=== PATIENT | female | born 1960 | race Caucasian/White ===

== ENCOUNTER → 2017-03-03 | Outpatient (CLI) | payer OTHER, MEDICARE ==
--- NOTE | 2017-03-03 10:02 | RAD ---
EXAM: DIGITAL SCREEN BILAT W/CAD. HISTORY: Screening. COMPARISON: 01/24/2016, 12/28/2014, 12/16/2013. FINDINGS: Digital mammography was performed. Computer-aided detection (CAD) was utilized. The breast parenchyma is primarily fatty (tissue density A). No dominant suspicious mass, suspicious microcalcifications, or architectural distortion is identified. IMPRESSION: No mammographic evidence of malignancy. BI-RADS CATEGORY: 1 NEGATIVE RECOMMENDED FOLLOW-UP: 12M 12 MONTH FOLLOW-UP PQRS compliance statement: Patient information was entered into a reminder system with a target due date for the next mammogram. Mammography is a sensitive method for finding small breast cancers, but it does not detect them all and is not a substitute for careful clinical examination. A negative mammogram does not negate a clinically suspicious finding and should not result in delay in biopsying a clinically suspicious abnormality. "Our facility is accredited by the [employer] Mammography Program."
== END | disposition home or self-care (01) ==
LOC: MAMMO 09:23
PROVIDERS: ATTEND Family Medicine
DX: Z12.31 Encounter for screening mammogram for malignant neoplasm of breast (principal)
CPT/HCPCS: G0202; 77067

== ENCOUNTER → 2017-08-22 | Outpatient (CLI) | payer OTHER, MEDICARE ==
--- NOTE | 2017-08-22 11:11 | RAD ---
CT of the head without contrast, 08/22/2017: History: Fall, injury, head and neck pain The ventricles are within normal limits in size. There is no shift of the midline structures. There is no evidence of acute intracranial hemorrhage or mass effect. IMPRESSION: No acute intracranial abnormality is detected. CT of the cervical spine without contrast, 08/22/2017: Noncontrast scans were obtained with multiplanar reconstructions produced. There is fusion of the C3 and C4 vertebrae, presumably on a congenital basis. Moderate posterior marginal spurring and mild disc bulging at C4-5 is causing mild central spinal stenosis at that level. There is also mild posterior disc bulging and spurring at C5-6 and C6-7. There are mild degenerative changes involving scattered facet joints bilaterally. No acute fracture or dislocation is identified. The prevertebral soft tissues are unremarkable. IMPRESSION: 1. Moderate multilevel degenerative change as described above. 2. No acute bony abnormality is detected. PQRS Compliance Statement: One or more of the following individualized dose reduction techniques were utilized for this examination: 1. Automated exposure control 2. Adjustment of the mA and/or kV according to patient size 3. Use of iterative reconstruction technique
== END | disposition home or self-care (01) ==
LOC: CT 09:34
PROVIDERS: ATTEND Nurse Practitioner Family
DX: M48.02 Spinal stenosis, cervical region (principal); M47.892 Other spondylosis, cervical region; R51 Headache; W18.2XXA Fall in (into) shower or empty bathtub, initial encounter; Y93.89 Activity, other specified; Y92.89 Other specified places as the place of occurrence of the external cause; Y99.8 Other external cause status
CPT/HCPCS: 70450; 72125

== ENCOUNTER → 2018-01-13 | Outpatient (CLI) | payer BC ==
--- NOTE | 2018-01-13 11:56 | RAD ---
CT abdomen pelvis without intravenous contrast History: Right flank pain for 3 days. Comparison: None. Technique: CT of the abdomen and pelvis was performed without intravenous or oral contrast. Exposure: One or more of the following individualized dose reduction techniques were utilized for this examination: 1. Automated exposure control 2. Adjustment of the mA and/or kV according to patient size 3. Use of iterative reconstruction technique Findings: Evaluation of solid organs is limited by lack of intravenous contrast. Evaluation of enteric structures may be limited by lack of oral contrast. Motion artifact is seen at several levels, which could obscure subtle abnormalities. Visualized lower chest demonstrate a few small right cardiophrenic lymph nodes with the largest measuring 7 mm, nonspecific. Mild fatty liver disease is seen. Old granulomatous disease of the liver and spleen can be seen. Pancreas, gallbladder, and bilateral adrenal glands are unremarkable. Aortic atherosclerosis is seen. Bilateral kidneys and ureters are free stone or obstruction. Urinary bladder is unremarkable. Uterus and adnexa have unremarkable CT appearance. Scattered colonic diverticulosis is noted, but no diverticulitis appreciated. Appendix is without evidence of inflammation. No free air free fluid is seen in the abdomen or pelvis. Impression: No acute abnormality identified in the abdomen or pelvis. No evidence of urinary stone. Electronically signed by: Mark Cervantes MD (01/13/2018 11:53 AM) [place] [id number]
== END | disposition home or self-care (01) ==
LOC: CT 11:29
PROVIDERS: ATTEND Family Medicine
DX: K57.30 Diverticulosis of large intestine without perforation or abscess without bleeding (principal); K76.0 Fatty (change of) liver, not elsewhere classified; D71 Functional disorders of polymorphonuclear neutrophils; I70.0 Atherosclerosis of aorta
CPT/HCPCS: 74176

== ENCOUNTER 2018-04-13 14:33 | Observation (INO) | payer BC, MEDICARE ==
[~2018-04-13] VITALS: Ht 170.2 cm; Wt 105.4 kg
[2018-04-13 14:58] VITALS: BP 105/66
[2018-04-13] MEDS ORDERED: ONDANSETRON PF 4 MG/2 ML VIAL. IV PRN (15:00)
[2018-04-13] MEDS ORDERED: INSU100V13 SQ (15:16)
[2018-04-13] MEDS ORDERED: ASPI-612 PO (15:16)
[2018-04-13] MEDS ORDERED: ROPI1TAB PO (15:16)
[2018-04-13] MEDS ORDERED: MULT1TAB52 PO (15:16)
[2018-04-13] MEDS ORDERED: CANA300T PO (15:16)
[2018-04-13] MEDS ORDERED: OMEG-33 PO (15:16)
[2018-04-13] MEDS ORDERED: ALBU8.5H8 INH (15:16)
[2018-04-13] MEDS ORDERED: PREG200C PO (15:16)
[2018-04-13] MEDS ORDERED: SIMV10TA3 PO (15:16)
[2018-04-13] MEDS ORDERED: INSU100V9 SQ (15:16)
[2018-04-13] MEDS ORDERED: BACL10TA PO (15:16)
[2018-04-13] MEDS ORDERED: LIRA0.6P2 SQ (15:16)
[2018-04-13] MEDS ORDERED: FLUT9.9S NS (15:16)
[2018-04-13] MEDS ORDERED: METF10003 PO (15:16)
[2018-04-13] MEDS ORDERED: FENO145T30 PO (15:16)
[2018-04-13] MEDS ORDERED: LOSA1TAB19 PO (15:16)
[2018-04-13] MEDS ORDERED: IBUP400T18 PO (15:16)
[2018-04-13] MEDS ORDERED: CALC-157 PO (15:16)
[2018-04-13] MEDS ORDERED: TIOT4MIS3 IH (15:16)
[2018-04-13] MEDS ORDERED: DILT120C80 PO (15:16)
[2018-04-13] MEDS ORDERED: DULO30CA2 PO (15:16)
[2018-04-13 15:24] LABS: BASO # 0.1 x10^3/uL (0.0-0.2); BASO % 1 % (0-3); EOS # 0.2 x10^3/uL (0.0-0.7); EOS % 4 % (0-3); HEMATOCRIT 43.7 % (36.0-47.0); HEMOGLOBIN 15.1 g/dL (12.0-15.5); LYMPH # 3.2 x10^3/uL (1.0-4.8); LYMPH % 48 % (24-48); MEAN CORPUSCULAR HEMOGLOBIN 29 pg (25-35); MEAN CORPUSCULAR HGB CONC 35 g/dL (31-37); MEAN CORPUSCULAR VOLUME 85 fL (79-100); MONO # 0.8 x10^3/uL (0.0-1.1); MONO % 12 % (0-9); NEUT # 2.4 x10^3uL (1.8-7.7); NEUT % 36 % (31-73); PLATELET COUNT 240 x10^3/uL (140-400); RED BLOOD COUNT 5.13 x10^6/uL (3.50-5.40); RED CELL DISTRIBUTION WIDTH 14.2 % (11.5-14.5); WHITE BLOOD COUNT 6.7 x10^3/uL (4.0-11.0)
[2018-04-13 15:45] LABS: ALBUMIN 3.6 g/dL (3.4-5.0); ALBUMIN/GLOBULIN RATIO 0.8 (1.0-1.7); CALCIUM 9.3 mg/dL (8.5-10.1); CREATININE 0.7 mg/dL (0.6-1.0); GFR 85.6; POTASSIUM 4.1 mmol/L (3.5-5.1); TOTAL BILIRUBIN 0.5 mg/dL (0.2-1.0); TOTAL PROTEIN 8.3 g/dL (6.4-8.2)
[2018-04-13] MEDS ORDERED: IBUPROFEN 400 MG TABLET. PO SCH (16:00)
--- NOTE | 2018-04-13 16:25 | RAD ---
CT HEAD WITHOUT CONTRAST 04/13/2018 4:01 PM Indication: DIZZINESS Comparison: CT of the head without contrast August 22, 2017 Procedure: Multidetector CT imaging of the head was performed without the administration of contrast. Findings: There is no evidence of acute intracranial hemorrhage. There is no evidence of acute territorial infarction. Please note that CT is limited for evaluation of acute ischemia. No mass effect or midline shift is identified . The ventricles and basilar cisterns have an appropriate appearance. No abnormal extra-axial fluid collections are seen. No acute osseous changes are identified. Impression: No evidence of acute intracranial abnormality Electronically signed by: Luciano Keller MD (04/13/2018 4:22 PM) [id number]
[2018-04-13] MEDS: INSULIN LISPRO 300 UNITS/3 ML INSULN.PEN. SQ SCH (16:30)
[2018-04-13] MEDS ORDERED: metFORMIN 500 MG TABLET PO SCH (17:00)
[2018-04-13] MEDS ORDERED: ALBUTEROL SULFATE 8GM INHALER. INH PRN (18:30)
[2018-04-13] MEDS ORDERED: ALBUTEROL SULFATE 2.5 MG/3 ML NEBU. NEB PRN (19:00)
[2018-04-13 20:03] VITALS: BP 113/69
[2018-04-13] MEDS: OMEGA-3 FATTY ACIDS/FISH OIL 1,000 MG CAPSULE. PO SCH (20:05)
[2018-04-13] MEDS: rOPINIRole 1 MG TABLET. PO SCH (20:05)
[2018-04-13] MEDS: BACLOFEN 10 MG TABLET PO SCH (20:06)
[2018-04-13] MEDS: PREGABALIN 50 MG CAPSULE PO SCH (20:06)
[2018-04-13] MEDS: INSULIN GLARGINE 300 UNITS/3 ML INSULN.PEN. SQ SCH (20:11)
[2018-04-13] MEDS ORDERED: ONDANSETRON ODT 4 MG TAB.RAPDIS PO PRN (20:30)
[2018-04-13] MEDS ORDERED: DULoxetine HCL 30 MG CAPSULE.DR PO ONE (21:00)
[2018-04-13] MEDS ORDERED: SIMVASTATIN 10 MG TABLET PO SCH (21:00)
[2018-04-13] MEDS ORDERED: DULoxetine HCL 30 MG CAPSULE.DR PO SCH ×2 (21:00)
[2018-04-13] MEDS ORDERED: CALCIUM CARB/VIT D3 500/200 TABLET PO SCH (21:00)
[2018-04-13] MEDS ORDERED: BACLOFEN 10 MG TABLET PO SCH (21:00)
[2018-04-13 22:20] LABS: BILIRUBIN,URINE NEG (NEG); CLARITY,URINE CLEAR; COLOR,URINE YELLOW; GLUCOSE,URINE >=1000 mg/dL (NEG); NITRITE,URINE NEG (NEG); UROBILINOGEN,URINE 1 mg/dL (0.2 mg/dL)
[2018-04-13 22:21] LABS: BACTERIA,URINE FEW /HPF (0-FEW); RBC,URINE 0 /HPF (0-2); SQUAMOUS EPITHELIAL CELL,UR MOD /LPF; WBC,URINE OCC /HPF (0-4); YEAST,URINE PRESENT /HPF
[2018-04-14] VITALS (7 sets, daily range): BP systolic 96–152; BP diastolic 61–105
[2018-04-14 03:43] LABS: BASO # 0.1 x10^3/uL (0.0-0.2); BASO % 1 % (0-3); EOS # 0.3 x10^3/uL (0.0-0.7); EOS % 5 % (0-3); HEMATOCRIT 42.6 % (36.0-47.0); HEMOGLOBIN 14.4 g/dL (12.0-15.5); LYMPH # 3.4 x10^3/uL (1.0-4.8); LYMPH % 53 % (24-48); MEAN CORPUSCULAR HEMOGLOBIN 29 pg (25-35); MEAN CORPUSCULAR HGB CONC 34 g/dL (31-37); MEAN CORPUSCULAR VOLUME 87 fL (79-100); MONO # 0.6 x10^3/uL (0.0-1.1); MONO % 10 % (0-9); NEUT % 31 % (31-73); PLATELET COUNT 233 x10^3/uL (140-400); RED CELL DISTRIBUTION WIDTH 14.5 % (11.5-14.5); WHITE BLOOD COUNT 6.5 x10^3/uL (4.0-11.0)
[2018-04-14 04:08] LABS: CALCIUM 9.4 mg/dL (8.5-10.1); CREATININE 0.8 mg/dL (0.6-1.0); GFR 73.4; POTASSIUM 4.1 mmol/L (3.5-5.1)
--- NOTE | 2018-04-14 05:51 | CONS ---
DATE OF CONSULTATION: 04/13/2018 REFERRING PHYSICIAN: Dr. Aldridge. REASON FOR CONSULTATION: Severe leg cramps and weakness. HISTORY OF PRESENT ILLNESS: This is a 57-year-old right-handed female who is known to me from previous visit to my office complaining of symptoms of peripheral neuropathy, has been in her usual state of health until last night when she had severe cramping of the legs from the knee down. She tried to stand up and walk, she felt dizzy and steady, but she did not fall. Subsequently, she has nausea and she vomited, and she had slight vomitus. She stayed in bed all night when she tried to get up this morning, the patient felt nauseated and have a foggy feeling in the head with moderate global headaches. She denies nausea this morning. On occasions, she complains of exertional dyspnea; however, and currently, she denies chest pain, shortness of breath or palpitations. She stated she felt like she is feverish. When she tried to walk, her legs were very weak. She denies any recent back injuries or fall. PAST MEDICAL HISTORY: Significant for diabetes mellitus, hypertension, hyperlipidemia, restless leg syndrome, peripheral neuropathy, obesity, depression, GERD. PAST SURGICAL HISTORY: Status post left foot surgeries, tubal ligations in 1984 in 1988, left knee surgeries in 2013. FAMILY HISTORY: Noncontributory. CURRENT HOME MEDICATIONS: Aspirin, baclofen, vitamin D, diltiazem, Cymbalta, fenofibrate, fish oil, hydrochlorothiazide, ibuprofen, insulin Lantus, insulin Humalog, losartan, metformin, multivitamins, pregabalin/Lyrica, allopurinol, and simvastatin. ALLERGIES: No known drug allergies. REVIEW OF SYSTEMS: A 10-point review of system was performed as mentioned above history of present illness. PHYSICAL EXAMINATION: GENERAL: Obese white female, in no acute distress. She weighs 234 pounds. VITAL SIGNS: Blood pressure 105/66, respiratory rate 22, pulse is 92, temperature 98.1, oxygen saturation 93% on room air. HEENT: Normocephalic, atraumatic, otherwise unremarkable. NECK: Supple. Negative for carotid bruit, lymphadenopathy or thyromegaly. LUNGS: Clear to A and P. CARDIOVASCULAR: Regular rate and rhythm, normal S1, S2. ABDOMEN: Soft. Bowel sounds positive. EXTREMITIES: Negative for cyanosis, clubbing or pitting edema. NEUROLOGIC: MENTAL STATUS: The patient is alert and oriented x 3. Speech is fluent. There is no language dysfunction. Memory, judgment, and abstract thinking are normal. The patient denies hallucination or delusion. CRANIAL NERVES: Visual jorge are full. The pupils are reactive to light and accommodation. The extraocular movements are intact. There is no nystagmus. There is no facial, motor or sensory deficit. Hearing is intact bilaterally. The palate is elevated symmetrically. Sternocleidomastoid muscles are powerful bilaterally. The patient shrugs her shoulders symmetrically and protrudes her tongue in the midline without fasciculation or atrophy. MOTOR EXAMINATION: No focal muscle bulk was seen. The tone is normal. The strength is 4/5 throughout in the lower extremities. SENSORY EXAMINATION: Revealed diminished pinprick and light touch senses in patchy distributions and in stocking distributions. Deep tendon reflexes were symmetric with absent Achilles responses bilaterally. Gait: The patient limping on her gait secondary to weakness of the distal lower extremities. The coordination is normal. Initial head CT scan is negative for acute intracranial process. LABORATORY DATA: CBC revealed white blood cells of 6700, hemoglobin 15.1, hematocrit 43.7, platelet count 240,000. Chemistry revealed sodium of 140, potassium 4.1, chloride 102, CO2 26, BUN 15, creatinine 0.5, glucose 212, and calcium 9.3. Liver enzymes, elevated AST. Troponin level is normal. Amylase and lipase were normal. D-dimer is normal at 0.47. IMPRESSION: 1. Exacerbation of restless leg syndrome. 2. Peripheral neuropathy of the lower extremities, probably due to diabetes mellitus. 3. Multiple medical problems include chronic obstructive pulmonary disease, asthma, hypertension, hyperlipidemia, diabetes mellitus, and gastroesophageal reflux disease. RECOMMENDATIONS: 1. Continue with the current management for peripheral neuropathy, with Lyrica. 2. Physical therapy evaluation. 3. In case of having nausea, vomiting with abdominal pain, we will order abdominal ultrasound or gallbladder ultrasounds. M Armond ESPINOZA MD DR: BEN/olga lidia JOB#: [id number] / [id number]
[2018-04-14] MEDS: OMEGA-3 FATTY ACIDS/FISH OIL 1,000 MG CAPSULE. PO SCH (09:00)
[2018-04-14] MEDS: NON FORMULARY ITEM (Liraglutide (Victoza 3-Pak) 1.8 MG) SQ SCH (09:00)
[2018-04-14] MEDS ORDERED: hydroCHLOROthiazide 12.5 MG CAPSULE PO SCH (09:00)
[2018-04-14] MEDS ORDERED: FENOFIBRATE NANOCRYSTALLIZED 145 MG TABLET PO SCH (09:00)
[2018-04-14] MEDS ORDERED: LOSARTAN 50 MG TABLET. PO SCH (09:00)
[2018-04-14] MEDS: NON FORMULARY ITEM (Tiotropium Br/Olodaterol HCl (Stiolto Respimat Inhal Spray) 2.5 GM) IH SCH (09:00)
[2018-04-14] MEDS: BACLOFEN 10 MG TABLET PO SCH ×3 (09:05→20:32)
[2018-04-14] MEDS: FLUTICASONE 50MCG/NASAL SPRAY 16GM BOTTLE. NS SCH (09:33)
[2018-04-14] MEDS: ASPIRIN ENTERIC COATED 81 MG TABLET.DR. PO SCH (09:34)
[2018-04-14] MEDS: MULTIVITAMIN with MINERAL TABLET. PO SCH (09:35)
[2018-04-14] MEDS: PREGABALIN 50 MG CAPSULE PO SCH ×3 (09:35→20:32)
[2018-04-14] MEDS: rOPINIRole 1 MG TABLET. PO SCH ×3 (09:37→20:31)
[2018-04-14] MEDS: INSULIN LISPRO 300 UNITS/3 ML INSULN.PEN. SQ SCH ×3 (09:45→17:03)
--- NOTE | 2018-04-14 10:17 | PN ---
DATE: 04/14/2018 SUBJECTIVE: The patient continues to complain of numbness and paresthesia of the feet and weakness of the lower extremities. As the day goes on, the patient feels better. She also complains of dizziness upon arising this morning. She denies chest pain, shortness of breath or palpitation, dysarthria, dysphagia or vertigo. OBJECTIVE: GENERAL: Obese white female, not in acute distress. VITAL SIGNS: Blood pressure 96/66, respiratory rate 20, pulse is 78 and regular, temperature 98.4, oxygen saturation 95% on room air. HEENT: Normocephalic, atraumatic, otherwise unremarkable. NECK: Supple. Negative for carotid bruit, lymphadenopathy or thyromegaly. LUNGS: Clear to A and P. CARDIOVASCULAR: Regular rate and rhythm, normal S1, S2. There is no S3, S4, or murmur. ABDOMEN: Soft. Bowel sounds positive. EXTREMITIES: Negative for cyanosis, clubbing, pitting edema. NEUROLOGIC: Normal mental status and intact cranial nerves. There are no focal motor deficits. Sensory examination revealed diminished pinprick and light touch senses in distal lower extremities and in stocking distributions. Deep tendon reflexes were symmetric with absent Achilles responses bilaterally. The tandem gait is difficult. The coordination is normal. LABORATORY DATA: CBC revealed white blood cells 6.5 thousand, hemoglobin 14.4, hematocrit 42.6, platelet count 233,000. Chemistry revealed sodium of 139, potassium 4.1, chloride 100, CO2 29, BUN 17, creatinine 0.8, glucose 188, calcium 9.4. IMPRESSION: 1. Weakness of the lower extremities, probably multifactorial including arthritis of the joint and diabetic peripheral neuropathy. 2. Multiple medical problems include diabetes mellitus, hypertension, hyperlipidemia, obesity, gastroesophageal reflux disease and chronic obstructive pulmonary disease. RECOMMENDATIONS: 1. Continue with current management and physical therapy evaluation. 2. Hypertension, probably blood pressure medication may need to be adjusted. M Armond ESPINOZA MD DR: BEN/olga lidia JOB#: [id number] / [id number]
--- NOTE | 2018-04-14 11:18 | PN ---
DATE: 04/14/2018 SUBJECTIVE: The patient is a 57-year-old female who came in with nausea, vomiting, also severe spasms in her legs. The patient seems to be doing somewhat better this morning in that regard, still having abdominal pain in the right upper quadrant area. The patient's otherwise abdominal ultrasound is pending at this time and we will make further evaluation on her once those results are back in. OBJECTIVE: VITAL SIGNS: Include blood pressure approximately 100/66, respiratory rate 20, pulse 80, afebrile. GENERAL: The patient is alert and oriented. LUNGS: Clear. CARDIOVASCULAR: Regular sinus rhythm. ABDOMEN: Soft, nontender, no rebound or guarding. Positive bowel sounds, no hepatosplenomegaly, except for pain in the right upper quadrant area. EXTREMITIES: No clubbing, cyanosis, or edema. NEUROLOGIC: The patient is alert and oriented. Neurologically, seems to be intact. IMPRESSION: Abdominal pain, nausea, vomiting, hypotensive, type 2 diabetes. PLAN: Cardiac enzymes were negative. Continue to monitor the patient accordingly and make further evaluation on her once the abdominal ultrasound, give her IV fluids to get her blood pressure up and adjust medications. GAVIN RIZZO MD DR: CAROLANN/olga lidia JOB#: [id number] / [id number]
[2018-04-14] MEDS: IV NORMAL SALINE 1,000ML 1,000 ML IV SCH ×2 (12:40→20:29)
--- NOTE | 2018-04-14 13:02 | RAD ---
INDICATION: Abdominal pain. TECHNIQUE: Ultrasound of the abdomen was performed. Comparison CT is from January 13, 2018. FINDINGS: Visualized pancreas is unremarkable. Aorta is normal caliber. IVC is patent. There is diffuse increase in echogenicity of the liver and the right hepatic lobe is enlarged at 19.0 cm. Gallbladder is negative. Common bile duct is within normal limits for age at 6 mm. Kidneys are without hydronephrosis or mass. Spleen is 13 cm longitudinal with echogenic presumed calcifications compatible with granulomas noted. IMPRESSION: 1. Fatty infiltration of a mildly enlarged liver. 2. Borderline splenomegaly. Electronically signed by: Romario Smith MD (04/14/2018 12:58 PM) [id number]
[2018-04-14] MEDS: INSULIN GLARGINE 300 UNITS/3 ML INSULN.PEN. SQ SCH (20:38)
[2018-04-14] MEDS ORDERED: OMEGA-3 FATTY ACIDS/FISH OIL 1,000 MG CAPSULE. PO SCH (21:00)
[2018-04-14] MEDS ORDERED: DULoxetine HCL 30 MG CAPSULE.DR PO SCH (21:00)
[2018-04-15] MEDS: IV NORMAL SALINE 1,000ML 1,000 ML IV SCH (04:36)
[2018-04-15 05:02] VITALS: BP 106/70
[2018-04-15] MEDS: BACLOFEN 10 MG TABLET PO SCH (08:35)
[2018-04-15] MEDS: rOPINIRole 1 MG TABLET. PO SCH (08:35)
[2018-04-15] MEDS: PREGABALIN 50 MG CAPSULE PO SCH (08:35)
[2018-04-15] MEDS: ASPIRIN ENTERIC COATED 81 MG TABLET.DR. PO SCH (08:36)
[2018-04-15] MEDS: MULTIVITAMIN with MINERAL TABLET. PO SCH (08:36)
[2018-04-15] MEDS: FLUTICASONE 50MCG/NASAL SPRAY 16GM BOTTLE. NS SCH (08:36)
[2018-04-15] MEDS: INSULIN LISPRO 300 UNITS/3 ML INSULN.PEN. SQ SCH (08:40)
[2018-04-15 08:41] VITALS: BP 106/70
[2018-04-15] MEDS: NON FORMULARY ITEM (Tiotropium Br/Olodaterol HCl (Stiolto Respimat Inhal Spray) 2.5 GM) IH SCH (09:00)
[2018-04-15] MEDS: NON FORMULARY ITEM (Liraglutide (Victoza 3-Pak) 1.8 MG) SQ SCH (09:00)
[2018-04-15] MEDS ORDERED: DILT120C80 PO (10:17)
[2018-04-15] MEDS ORDERED: IBUP400T18 PO (10:17)
--- NOTE | 2018-04-15 12:19 | DS ---
DATE OF DISCHARGE: 04/15/2018 HOSPITAL COURSE: A 57-year-old female came in with severe nausea and vomiting and also had severe spasms in her legs. The patient made excellent progress during the rest of her hospitalization. She also had some global headache type picture as well. She has a history of peripheral neuropathy. The patient was seen by Neurology. She made excellent progress during her rest of her hospitalization. We have to modify some of her blood pressure meds as her blood pressure went down and so we cut back on some of her blood pressure meds as well as some of her insulin since the patient had lower blood sugars in the hospital and her hospital diet. She discontinued her Invokana, and her Victoza. The patient made good progress. She will be on a diabetic diet, see EMRAD. IMPRESSION: Gastroenteritis with nausea, vomiting. Peripheral neuropathy, exacerbation of restless leg syndrome, history of chronic obstructive pulmonary disease, asthma, hypertension, hyperlipidemia, type 2 diabetes, morbid obesity, gastroesophageal reflux. PLAN: The patient will be discharged home. Follow up as an outpatient. She was told she needs a colonoscopy. GAVIN RIZZO MD DR: CAROLANN/olga lidia JOB#: [id number] / [id number]
--- NOTE | 2018-04-15 23:59 | PN ---
DATE: 04/15/2018 SUBJECTIVE: The patient denies any new medical neurological complaints, but she complains of intermittent cold feet. OBJECTIVE: GENERAL: Obese white female, not in acute distress. She weighs 232 pounds. VITAL SIGNS: Blood pressure is 106/70, respiratory rate 16, pulse is 72, temperature 97.8, oxygen saturation is 98% on room air. HEENT: Normocephalic, atraumatic, otherwise unremarkable. NECK: Supple. Negative for carotid bruit, lymphadenopathy, or thyromegaly. LUNGS: Clear to A and P. CARDIOVASCULAR: Regular rate and rhythm, normal S1, S2. There is no S3, S4, or murmur. ABDOMEN: Soft. Bowel sounds positive. EXTREMITIES: Negative for cyanosis, clubbing, or edema. NEUROLOGIC: Normal mental status and intact cranial nerves. No focal motor deficit. Sensory examination revealed diminished pinprick and light touch senses in patchy distributions in distal lower extremities. Deep tendon reflexes were symmetric with absent Achilles responses. Gait and coordination are normal. DIAGNOSTIC STUDIES: Abdomen ultrasound is consistent with enlarged liver and borderline splenomegaly, otherwise unremarkable. Head CT scan revealed no evidence of acute intracranial process. IMPRESSION: 1. Exacerbation of restless leg syndrome -- improved. 2. Peripheral neuropathy of the lower extremities, probably due to diabetes mellitus. 3. Multiple medical problems include hypertension, hyperlipidemia, acute gastroesophageal reflux disease, chronic obstructive pulmonary disease, glaucoma, diabetes mellitus. RECOMMENDATIONS: Continue with current management initiated by Dr. Aldridge. M Armond ESPINOZA MD DR: BEN/olga lidia JOB#: [id number] / [id number]
--- NOTE | 2018-04-16 07:03 | EKG ---
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
== END 2018-04-15 11:15 | disposition home or self-care (01) ==
LOC: 1 SOUTH 14:34 → INTOOBSV 14:34
PROVIDERS: ADMIT Family Medicine; ATTEND Family Medicine
DX: K52.9 Noninfective gastroenteritis and colitis, unspecified (principal); E11.42 Type 2 diabetes mellitus with diabetic polyneuropathy; I10 Essential (primary) hypertension; J44.9 Chronic obstructive pulmonary disease, unspecified; K21.9 Gastro-esophageal reflux disease without esophagitis; E78.5 Hyperlipidemia, unspecified; E66.9 Obesity, unspecified; G25.81 Restless legs syndrome; M19.90 Unspecified osteoarthritis, unspecified site
CPT/HCPCS: 36415; 70450; 76700; 80048; 80053; 81001; 82150; 82550; 82947; 83690; 83880; 84484; 85025; 85379; 87086; 93005; 96361; 96372; 96374; G0378; G0379; J1815; J2405; J7030

== ENCOUNTER → 2018-06-01 | Outpatient (CLI) | payer BC, MEDICARE ==
[~2018-06-01] MED LIST: ALBU8.5H8 INH; ASPI-612 PO; BACL10TA PO; CALC-157 PO; CANA300T PO; DILT120C80 PO; DULO30CA2 PO; FENO145T30 PO; FLUT9.9S NS; IBUP400T18 PO; INSU100V13 SQ; INSU100V9 SQ; IOHEXOL 240 MG/ML 50ML VIAL. ONE; IOHEXOL 240 MG/ML 50ML VIAL. PO ONE; LIRA0.6P2 SQ; LOSA1TAB19 PO; METF10003 PO; MULT1TAB52 PO; OMEG-33 PO; PREG200C PO; ROPI1TAB PO; SIMV10TA3 PO; TIOT4MIS3 IH
[2018-06-01 18:03] LABS: BASO # 0.1 x10^3/uL (0.0-0.2); BASO % 1 % (0-3); EOS # 0.2 x10^3/uL (0.0-0.7); EOS % 2 % (0-3); HEMATOCRIT 43.9 % (36.0-47.0); HEMOGLOBIN 14.8 g/dL (12.0-15.5); LYMPH % 52 % (24-48); MEAN CORPUSCULAR HEMOGLOBIN 29 pg (25-35); MEAN CORPUSCULAR HGB CONC 34 g/dL (31-37); MEAN CORPUSCULAR VOLUME 86 fL (79-100); MONO # 0.9 x10^3/uL (0.0-1.1); MONO % 10 % (0-9); NEUT # 3.3 x10^3uL (1.8-7.7); NEUT % 35 % (31-73); PLATELET COUNT 232 x10^3/uL (140-400); RED BLOOD COUNT 5.08 x10^6/uL (3.50-5.40); RED CELL DISTRIBUTION WIDTH 14.2 % (11.5-14.5); WHITE BLOOD COUNT 9.5 x10^3/uL (4.0-11.0)
[2018-06-01 18:17] LABS: ALBUMIN 3.9 g/dL (3.4-5.0); ALBUMIN/GLOBULIN RATIO 0.9 (1.0-1.7); CALCIUM 9.6 mg/dL (8.5-10.1); CREATININE 0.8 mg/dL (0.6-1.0); GFR 73.4; POTASSIUM 3.1 mmol/L (3.5-5.1); TOTAL BILIRUBIN 0.5 mg/dL (0.2-1.0); TOTAL PROTEIN 8.4 g/dL (6.4-8.2)
[2018-06-01 18:22] LABS: BILIRUBIN,URINE NEG (NEG); CLARITY,URINE CLEAR; COLOR,URINE YELLOW; GLUCOSE,URINE >=1000 mg/dL (NEG); NITRITE,URINE NEG (NEG); UROBILINOGEN,URINE 1 mg/dL (0.2 mg/dL)
[2018-06-01 18:23] LABS: BACTERIA,URINE FEW /HPF (0-FEW); SQUAMOUS EPITHELIAL CELL,UR MOD /LPF; WBC,URINE OCC /HPF (0-4); YEAST,URINE PRESENT /HPF
--- NOTE | 2018-06-01 19:43 | RAD ---
PQRS Compliance Statement: One or more of the following individualized dose reduction techniques were utilized for this examination: 1. Automated exposure control 2. Adjustment of the mA and/or kV according to patient size 3. Use of iterative reconstruction technique CT ABD PEL W/ORAL CONTRST ONLY Clinical Indication: Severe right upper quadrant abdomen and epigastric pain, weakness, fatigue. Comparison: CT abdomen and pelvis without contrast January 13, 2018. Technique: Helical CT imaging of the abdomen and pelvis is performed without IV contrast. Oral contrast is administered. Findings: Evaluation of solid organs is limited without IV contrast, decreasing sensitivity for detection of pathology. Mild atelectasis and/or scarring in the anterior right lung base. Stable tiny nodule in the lateral right lower lobe, image 16. Cardiac size normal. Stable right cardiophrenic lymph node. Fatty infiltration of the liver. Focal fatty sparing along the gallbladder fossa. Calcified granulomas in the spleen. The gallbladder, pancreas, adrenal glands, and abdominal aorta caliber are normal. No hydronephrosis or perinephric stranding. Stomach unremarkable. Small fat-containing umbilical hernia. No dilated small bowel. Distal colon diverticulosis without inflammation. Scattered stool in the colon. No colon wall thickening. The appendix is normal. No abdominal adenopathy or free fluid. Uterus unremarkable. No urinary bladder wall thickening. No pelvic free fluid. Vacuum disc phenomenon L5/S1. IMPRESSION: 1. No acute abdominal or pelvic abnormality. 2. Fatty infiltration of the liver. 3. Distal colon diverticulosis without diverticulitis. Electronically signed by: Nikko Webster MD (06/01/2018 7:40 PM) [facility]
== END | disposition home or self-care (01) ==
LOC: CT 17:28
PROVIDERS: ATTEND Family Medicine
DX: K76.0 Fatty (change of) liver, not elsewhere classified (principal); K57.30 Diverticulosis of large intestine without perforation or abscess without bleeding; D73.89 Other diseases of spleen; I10 Essential (primary) hypertension; E11.42 Type 2 diabetes mellitus with diabetic polyneuropathy; E78.5 Hyperlipidemia, unspecified; J44.9 Chronic obstructive pulmonary disease, unspecified; K21.9 Gastro-esophageal reflux disease without esophagitis; K42.9 Umbilical hernia without obstruction or gangrene
CPT/HCPCS: 36415; 74176; 80053; 81001; 82150; 83690; 85025; Q9966

== ENCOUNTER 2018-09-11 17:50 | Inpatient (IN) | payer BC, MEDICARE ==
[~2018-09-11] VITALS: Ht 170.2 cm; Wt 104.3 kg
[~2018-09-11 17:50] MED LIST changes: -IOHEXOL 240 MG/ML 50ML VIAL. ONE; -IOHEXOL 240 MG/ML 50ML VIAL. PO ONE; -METF10003 PO; +METF10007 PO
[2018-09-11] MEDS ORDERED: fentaNYL PF 250 MCG/5 ML VIAL IV PRN (18:15)
[2018-09-11] MEDS ORDERED: ALBUTEROL SULFATE 8GM INHALER. INH PRN (18:15)
[2018-09-11] MEDS ORDERED: ONDANSETRON ODT 4 MG TAB.RAPDIS PO PRN ×2 (18:15→18:30)
[2018-09-11 18:28] VITALS: BP 143/82
[2018-09-11] MEDS ORDERED: DEXTROSE 50% 25 GM / 50ML DISP.SYRIN. IV PRN ×2 (18:30→19:15)
[2018-09-11 18:31] LABS: BASO # 0.1 x10^3/uL (0.0-0.2); BASO % 1 % (0-3); EOS # 0.3 x10^3/uL (0.0-0.7); EOS % 3 % (0-3); HEMATOCRIT 44.4 % (36.0-47.0); HEMOGLOBIN 14.9 g/dL (12.0-15.5); LYMPH # 3.3 x10^3/uL (1.0-4.8); LYMPH % 28 % (24-48); MEAN CORPUSCULAR HEMOGLOBIN 29 pg (25-35); MEAN CORPUSCULAR HGB CONC 34 g/dL (31-37); MEAN CORPUSCULAR VOLUME 87 fL (79-100); MONO # 0.9 x10^3/uL (0.0-1.1); MONO % 7 % (0-9); NEUT # 7.3 x10^3uL (1.8-7.7); NEUT % 62 % (31-73); PLATELET COUNT 246 x10^3/uL (140-400); RED BLOOD COUNT 5.12 x10^6/uL (3.50-5.40); WHITE BLOOD COUNT 11.9 x10^3/uL (4.0-11.0)
[2018-09-11] MEDS: IV NORMAL SALINE 1,000ML 1,000 ML IV SCH (18:40)
[2018-09-11 18:41] LABS: ALBUMIN/GLOBULIN RATIO 0.9 (1.0-1.7); CALCIUM 9.6 mg/dL (8.5-10.1); GFR 56.7; POTASSIUM 3.7 mmol/L (3.5-5.1); TOTAL BILIRUBIN 0.5 mg/dL (0.2-1.0); TOTAL PROTEIN 8.7 g/dL (6.4-8.2)
[2018-09-11] MEDS ORDERED: INSU300I SQ (18:44)
[2018-09-11] MEDS ORDERED: LOSA1TAB19 PO (18:44)
[2018-09-11] MEDS ORDERED: ASCO500T3 PO (18:44)
[2018-09-11] MEDS ORDERED: ROPI1TAB PO (18:44)
[2018-09-11] MEDS ORDERED: INSU100I11 SQ (18:44)
[2018-09-11] MEDS ORDERED: VITA1CAP PO (18:44)
[2018-09-11] MEDS ORDERED: OMEP20CA9 PO (18:44)
[2018-09-11] MEDS ORDERED: DULA1.5P SQ (18:44)
[2018-09-11] MEDS ORDERED: ALBUTEROL SULFATE 2.5 MG/3 ML NEBU. NEB PRN (19:45)
[2018-09-11] MEDS: IPRATRPIUM/ALBUTEROL 0.5/2.5MG 3 ML NEBU. NEB SCH (19:51)
[2018-09-11 19:53] LABS: BILIRUBIN,URINE NEG (NEG); CLARITY,URINE CLOUDY; COLOR,URINE YELLOW; GLUCOSE,URINE >=1000 mg/dL (NEG); NITRITE,URINE NEG (NEG); RBC,URINE >40 /HPF (0-2); UROBILINOGEN,URINE 0.2 mg/dL (0.2 mg/dL)
[2018-09-11 19:54] LABS: BACTERIA,URINE MOD /HPF (0-FEW); SQUAMOUS EPITHELIAL CELL,UR FEW /LPF; WBC,URINE >40 /HPF (0-4)
--- NOTE | 2018-09-11 20:21 | RAD ---
EXAM: CT ABDOMEN/PELVIS WITHOUT CONTRAST. HISTORY: Right flank pain, hematuria, bloating. TECHNIQUE: Computed tomography of the abdomen and pelvis was performed without intravenous contrast. COMPARISON: 06/01/2018. FINDINGS: Lung windows through the visualized portions of the bases reveal a 5 mm uncalcified nodule in the right middle lobe. This is stable since the prior study. There are mild interstitial opacities in a predominantly subpleural distribution in the bases. Bone windows reveal no suspicious lesions. Diffuse hepatic steatosis appears moderate. The liver is at least mildly enlarged. There is focal fatty sparing along the gallbladder fossa. Scattered calcified granulomas are seen in the liver and spleen. The adrenal glands, pancreas and gallbladder are unremarkable. The kidneys are unremarkable without contrast. A small calcification in the left renal hilus is more likely atherosclerotic rather than a calculus. There are no clear ureteral calculi. Mild urothelial thickening is suspected along the right ureter. There is no hydronephrosis. There are no pathologically enlarged lymph nodes. There are changes of pelvic floor relaxation. Sigmoid diverticulosis is mild. Stool throughout the colon is consistent with constipation. A small umbilical hernia contains only fat. The appendix is not inflamed. IMPRESSION: 1. No renal or ureteral calculi. There is mild urothelial thickening along the right ureter. Correlate to exclude ascending infection. 2. Correlate for mild constipation. 3. Pelvic floor relaxation. 4. Moderate diffuse hepatic steatosis and hepatomegaly. 5. Small umbilical hernia containing only fat. 6. A 5 mm right middle lobe nodule is most likely benign at this size in the absence of known malignancy, and appears stable since at least January. A follow-up could be considered in one year if there are strong risk factors. 7. Correlate for mild interstitial lung disease in the bases. *One or more of the following individualized dose reduction techniques were utilized for this examination: 1. Automated exposure control. 2. Adjustment of the mA and/or kV according to patient size. 3. Use of iterative reconstruction technique. Electronically signed by: Mario Pearson MD (09/11/2018 8:17 PM) [facility]
[2018-09-11] MEDS ORDERED: rOPINIRole 1 MG TABLET. PO SCH (21:00)
[2018-09-11] MEDS ORDERED: DULoxetine HCL 30 MG CAPSULE.DR PO SCH (21:00)
[2018-09-11] MEDS ORDERED: NON FORMULARY ITEM (Duloxetine Hcl (Cymbalta) 1 CAP) PO SCH (21:00)
[2018-09-11] MEDS ORDERED: INSULIN GLARGINE 300 UNITS/3 ML INSULN.PEN. SQ SCH (21:00)
[2018-09-11] MEDS ORDERED: INSULIN GLARGINE SQ SCH (21:00)
[2018-09-11] MEDS: LACTOBACILLUS RHAMNOSUS GG 1 CAPSULE. PO SCH (21:02)
[2018-09-11] MEDS: DULoxetine HCL 30 MG CAPSULE.DR PO SCH (21:02)
[2018-09-11] MEDS: PREGABALIN 50 MG CAPSULE PO SCH (21:02)
[2018-09-11] MEDS: BACLOFEN 10 MG TABLET PO SCH (21:02)
[2018-09-11] MEDS: rOPINIRole 2 MG TABLET. PO SCH (21:05)
[2018-09-11] MEDS: INSULIN GLARGINE SQ SCH (21:05)
[2018-09-11 22:12] VITALS: BP 99/64
[2018-09-12] MEDS: IV NORMAL SALINE 1,000ML 1,000 ML IV SCH ×3 (02:58→19:26)
[2018-09-12] MEDS ORDERED: ASA/APAP/CAFFEINE 250/250/65MG TABLET. PO PRN (03:15)
[2018-09-12] MEDS: IPRATRPIUM/ALBUTEROL 0.5/2.5MG 3 ML NEBU. NEB SCH ×4 (05:16→20:00)
[2018-09-12 05:29] VITALS: BP 117/62
[2018-09-12 07:04] LABS: BASO % 0 % (0-3); EOS # 0.2 x10^3/uL (0.0-0.7); EOS % 3 % (0-3); HEMOGLOBIN 13.6 g/dL (12.0-15.5); LYMPH # 3.5 x10^3/uL (1.0-4.8); LYMPH % 48 % (24-48); MEAN CORPUSCULAR HEMOGLOBIN 29 pg (25-35); MEAN CORPUSCULAR HGB CONC 33 g/dL (31-37); MEAN CORPUSCULAR VOLUME 88 fL (79-100); MONO # 0.7 x10^3/uL (0.0-1.1); MONO % 9 % (0-9); NEUT # 2.9 x10^3uL (1.8-7.7); NEUT % 40 % (31-73); PLATELET COUNT 211 x10^3/uL (140-400); RED BLOOD COUNT 4.67 x10^6/uL (3.50-5.40); WHITE BLOOD COUNT 7.3 x10^3/uL (4.0-11.0)
[2018-09-12 07:13] LABS: CALCIUM 8.8 mg/dL (8.5-10.1); GFR 56.7; POTASSIUM 3.4 mmol/L (3.5-5.1)
[2018-09-12] MEDS ORDERED: POTASSIUM CHLORIDE 20 MEQ TABLET.ER. PO ONE (07:30)
[2018-09-12] MEDS: LACTOBACILLUS RHAMNOSUS GG 1 CAPSULE. PO SCH ×2 (07:47→20:10)
[2018-09-12] MEDS: rOPINIRole 1 MG TABLET. PO SCH (07:47)
[2018-09-12] MEDS: PREGABALIN 50 MG CAPSULE PO SCH ×3 (07:48→20:09)
[2018-09-12] MEDS: BACLOFEN 10 MG TABLET PO SCH ×3 (07:48→20:09)
[2018-09-12] MEDS: INSULIN LISPRO 300 UNITS/3 ML INSULN.PEN. SQ SCH ×3 (07:49→17:00)
[2018-09-12] MEDS ORDERED: FLUTICASONE 50MCG/NASAL SPRAY 16GM BOTTLE. NS SCH (09:00)
[2018-09-12] MEDS ORDERED: NON FORMULARY ITEM (Tiotropium Br/Olodaterol HCl (Stiolto Respimat Inhal Spray) 2.5 GM) IH SCH (09:00)
[2018-09-12] MEDS ORDERED: FLUTICASONE 50MCG/NASAL SPRAY 16GM BOTTLE. NS PRN (09:00)
[2018-09-12 11:30] VITALS: BP 138/81
--- NOTE | 2018-09-12 11:30 | EKG ---
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
[2018-09-12 16:50] VITALS: BP 110/69
[2018-09-12 19:35] VITALS: BP 121/79
[2018-09-12] MEDS: rOPINIRole 2 MG TABLET. PO SCH (20:09)
[2018-09-12] MEDS: DULoxetine HCL 30 MG CAPSULE.DR PO SCH (20:09)
[2018-09-12] MEDS: INSULIN GLARGINE SQ SCH (20:12)
--- NOTE | 2018-09-12 20:44 | PN ---
DATE: 09/12/2018 SUBJECTIVE: A 57-year-old female in with severe right mid to lower quadrant pain causing her to double over in pain, having nausea and vomiting. The patient was admitted. CAT scan did demonstrate the fact that she had an infected ureter and she was definitely septic the way she appeared and presented herself. She continues on IV antibiotic presently, some Rocephin and Levaquin. Cultures on the urine are still pending. Her urine did show greater than 40 white blood cells, greater than 40 red blood cells per high powered field. OBJECTIVE: VITAL SIGNS: Presently, blood pressure 140/80, respiratory rate 20, pulse 80, temperature is still 99.8. Still awaiting final culture report otherwise. LUNGS: Clear. CARDIOVASCULAR: Stable. ABDOMEN: Soft, not as tender as it was yesterday. She was exquisitely tender on palpation yesterday. Today, she is just slightly tender. IMPRESSION: Pyelonephritis, ureteritis, ureter was infected. PLAN: Continue with IV antibiotic therapy and await final culture report on her as indicated. GAVIN RIZZO MD DR: CAROLANN/olga lidia JOB#: [id number] / [id number]
[2018-09-12 22:53] VITALS: BP 128/77
[2018-09-13] MEDS: IV NORMAL SALINE 1,000ML 1,000 ML IV SCH ×2 (02:15→10:15)
[2018-09-13] MEDS: IPRATRPIUM/ALBUTEROL 0.5/2.5MG 3 ML NEBU. NEB SCH ×2 (05:36→11:58)
[2018-09-13 05:53] VITALS: BP 134/80
[2018-09-13] MEDS: INSULIN LISPRO 300 UNITS/3 ML INSULN.PEN. SQ SCH ×2 (08:00→11:58)
[2018-09-13] MEDS: BACLOFEN 10 MG TABLET PO SCH (08:36)
[2018-09-13] MEDS: LACTOBACILLUS RHAMNOSUS GG 1 CAPSULE. PO SCH (08:36)
[2018-09-13] MEDS: rOPINIRole 1 MG TABLET. PO SCH (08:36)
[2018-09-13] MEDS: PREGABALIN 50 MG CAPSULE PO SCH (08:36)
[2018-09-13] MEDS ORDERED: LEVO500T59 PO (12:15)
--- NOTE | 2018-09-19 00:56 | DS ---
DATE OF DISCHARGE: 09/13/2018 HOSPITAL COURSE: A 57-year-old female came in with lower abdominal pain, was found to have an infection of her right ureter and pyelonephritis. She was started on IV antibiotic therapy. She made excellent progress with this and was discharged home. She is also a diabetic. The patient's final urine culture grew out E. coli. The patient made good progress. She was discharged home for followup as an outpatient. She will be placed on a diabetic diet, decreased activity, see MRAD. IMPRESSION: Pyelonephritis with E. coli, type 2 diabetes, poorly controlled; hepatic steatosis, hepatomegaly. GAVIN RIZZO MD DR: CAROLANN/olga lidia JOB#: [id number] / [id number]
== END 2018-09-13 12:40 | disposition home or self-care (01) | DRG 690 ==
LOC: 1 SOUTH 17:50
PROVIDERS: ADMIT Family Medicine; ATTEND Family Medicine
DX: N12 Tubulo-interstitial nephritis, not specified as acute or chronic (principal); N28.89 Other specified disorders of kidney and ureter; E11.65 Type 2 diabetes mellitus with hyperglycemia; K76.0 Fatty (change of) liver, not elsewhere classified; B96.20 Unspecified Escherichia coli [E. coli] as the cause of diseases classified elsewhere; R16.0 Hepatomegaly, not elsewhere classified
CPT/HCPCS: 36415; 74176; 80048; 80053; 81001; 82150; 82947; 83605; 83690; 85025; 85379; 87086; 87186; 90471; 90756; 93005; 94640; J0696; J1815; J1956; J3010; J7620; Q0162; J7030; Q2035

== ENCOUNTER → 2018-12-30 | Outpatient (CLI) | payer BC, MEDICARE ==
[~2018-12-30] MED LIST changes: +ALBU2.5V8 INH; -ALBU8.5H8 INH; +ASCO500T3 PO; -DILT120C80 PO; +DILT120C85 PO; +DULA1.5P SQ; +INSU100I11 SQ; +INSU300I SQ; +LEVO500T59 PO; +OMEP20CA9 PO; +VITA1CAP PO
--- NOTE | 2018-12-30 14:31 | RAD ---
RS Compliance Statement: One or more of the following individualized dose reduction techniques were utilized for this examination: 1. Automated exposure control 2. Adjustment of the mA and/or kV according to patient size 3. Use of iterative reconstruction technique CT head without contrast 12/30/2018 2:13 PM INDICATION: Head trauma. Headaches and dizziness. COMPARISON: CT head April 13, 2018 TECHNIQUE: Multiple axial CT images of the head were obtained from skull base through the vertex without intravenous contrast. FINDINGS: Head: Ventricles, sulci and basal cisterns are within normal limits. There is no hydrocephalus. Bee-white matter differentiation is normal. There is no acute intracranial hemorrhage. There is no mass, mass effect or midline shift. Posterior fossa is normal in appearance. Visualized portions of the orbits are normal. Paranasal sinuses are well aerated. Mastoid air cells are well aerated. Scalp and calvaria are normal. IMPRESSION: No acute intracranial hemorrhage. Electronically signed by: Ronel Lockhart MD (12/30/2018 2:27 PM) [id number]
== END | disposition home or self-care (01) ==
LOC: CT 13:59
PROVIDERS: ATTEND Family Medicine
DX: S09.8XXD Other specified injuries of head, subsequent encounter (principal); R51 Headache; R42 Dizziness and giddiness; X58.XXXD Exposure to other specified factors, subsequent encounter
CPT/HCPCS: 70450

== ENCOUNTER 2019-12-23 14:27 | Emergency (ER) | payer BC, MEDICARE ==
[~2019-12-23] VITALS: Ht 170.2 cm; Wt 111.0 kg
[~2019-12-23 14:27] MED LIST changes: -DILT120C85 PO; +DILT120C99 PO; +FENO145T3 PO; -FENO145T30 PO; +OMEP20CA16 PO; -OMEP20CA9 PO; +SIMV10TA15 PO; -SIMV10TA3 PO
[2019-12-23] MEDS ORDERED: IV NORMAL SALINE 1,000ML 1,000 ML IV SCH (15:03)
[2019-12-23] MEDS ORDERED: ONDANSETRON PF 4 MG/2 ML VIAL. IVP ONE (15:15)
[2019-12-23 15:49] LABS: BASO % 1 % (0-3); EOS # 0.2 x10^3/uL (0.0-0.7); EOS % 3 % (0-3); HEMATOCRIT 45.3 % (36.0-47.0); HEMOGLOBIN 14.7 g/dL (12.0-15.5); LYMPH # 2.3 x10^3/uL (1.0-4.8); LYMPH % 33 % (24-48); MEAN CORPUSCULAR HEMOGLOBIN 28 pg (25-35); MEAN CORPUSCULAR HGB CONC 33 g/dL (31-37); MEAN CORPUSCULAR VOLUME 87 fL (79-100); MONO # 0.7 x10^3/uL (0.0-1.1); MONO % 10 % (0-9); NEUT # 3.6 x10^3uL (1.8-7.7); NEUT % 53 % (31-73); PLATELET COUNT 200 x10^3/uL (140-400); RED CELL DISTRIBUTION WIDTH 13.9 % (11.5-14.5); WHITE BLOOD COUNT 6.8 x10^3/uL (4.0-11.0)
[2019-12-23 15:57] LABS: CALCIUM 9.6 mg/dL (8.5-10.1); CREATININE 0.6 mg/dL (0.6-1.0); GFR 101.6; POTASSIUM 3.4 mmol/L (3.5-5.1)
[2019-12-23 16:02] LABS: ALBUMIN 3.9 g/dL (3.4-5.0); ALBUMIN/GLOBULIN RATIO 0.9 (1.0-1.7); TOTAL BILIRUBIN 0.4 mg/dL (0.2-1.0); TOTAL PROTEIN 8.4 g/dL (6.4-8.2)
[2019-12-23 16:11] LABS: BACTERIA,URINE FEW /HPF (0-FEW); BILIRUBIN,URINE NEG (NEG); CLARITY,URINE CLEAR; COLOR,URINE YELLOW; GLUCOSE,URINE >=1000 mg/dL (NEG); NITRITE,URINE NEG (NEG); SQUAMOUS EPITHELIAL CELL,UR OCC /LPF; UROBILINOGEN,URINE 0.2 mg/dL (0.2 mg/dL)
--- NOTE | 2019-12-23 16:15 | EKG ---
[address] [address] Test Date: 2019-12-23 Test Time: 15:35:27 Pat Name: MICHEL CABRERA Department: Room: Gender: F Experimental Box Tester: : [id number] Requested By: JSEÚS HIGGINBOTHAM Order Number: [id number] Reading MD: Measurements Intervals [place] Rate: 89 P: 34 [place]: 174 QRS: 41 QRSD: 98 T: 77 QT: 372 QTc: 454 Interpretive Statements SINUS RHYTHM VENTRICULAR PREMATURE COMPLEX(ES) INCOMPLETE RIGHT BUNDLE BRANCH BLOCK T ABNORMALITY IN HIGH LATERAL LEADS ABNORMAL ECG RI6.01 No previous ECG available for comparison
[2019-12-23 16:27] VITALS: BP 115/65
[2019-12-23] MEDS ORDERED: ONDA4TAB12 PO (16:31)
--- NOTE | 2019-12-23 16:31 | PHYS DOC ---
Past History Past Medical History: COPD, Depression, Diabetes Past Surgical History: Tubal ligation, Other Additional Past Surgical Histo: left knee replacement Alcohol Use: None Drug Use: None Adult General Chief Complaint Chief Complaint: NAUSEA/VOMITING/DIARRHEA HPI HPI Patient is a [age] year old [sex] who presents with [] Review of Systems Review of Systems Constitutional: Denies fever or chills [] Eyes: Denies change in visual acuity, redness, or eye pain [] HENT: Denies nasal congestion or sore throat [] Respiratory: Denies cough or shortness of breath [] Cardiovascular: No additional information not addressed in HPI [] GI: Denies abdominal pain, nausea, vomiting, bloody stools or diarrhea [] : Denies dysuria or hematuria [] Musculoskeletal: Denies back pain or joint pain [] Integument: Denies rash or skin lesions [] Neurologic: Denies headache, focal weakness or sensory changes [] Endocrine: Denies polyuria or polydipsia [] All other systems were reviewed and found to be within normal limits, except as documented in this note. Current Medications Current Medications Current Medications Medications (Trade) Dose Ordered Sig/Mercedes Start Time Stop Time Status Last Admin Dose Admin Ondansetron HCl (Zofran) 4 mg 1X ONCE 12/23/19 15:15 12/23/19 15:16 DC 12/23/19 15:23 4 MG Sodium Chloride 1,000 ml @ 1,000 mls/hr Q1H 12/23/19 15:03 12/23/19 16:02 DC 12/23/19 15:23 1,000 MLS/HR Allergies Allergies Allergies Coded Allergies Type Severity Reaction Last Updated Verified No Known Drug Allergies 12/23/19 No Physical Exam Physical Exam Constitutional: Well developed, well nourished, no acute distress, non-toxic appearance. [] HENT: Normocephalic, atraumatic, bilateral external ears normal, oropharynx moist, no oral exudates, nose normal. [] Eyes: PERRLA, EOMI, conjunctiva normal, no discharge. [] Neck: Normal range of motion, no tenderness, supple, no stridor. [] Cardiovascular:Heart rate regular rhythm, no murmur [] Lungs & Thorax: Bilateral breath sounds clear to auscultation [] Abdomen: Bowel sounds normal, soft, no tenderness, no masses, no pulsatile masses. [] Skin: Warm, dry, no erythema, no rash. [] Back: No tenderness, no CVA tenderness. [] Extremities: No tenderness, no cyanosis, no clubbing, ROM intact, no edema. [] Neurologic: Alert and oriented X 3, normal motor function, normal sensory function, no focal deficits noted. [] Psychologic: Affect normal, judgement normal, mood normal. [] Current Patient Data Vital Signs Vital Signs Date Time Temp Pulse Resp B/P (MAP) Pulse Ox O2 Delivery O2 Flow Rate FiO2 12/23/19 16:27 96 18 115/65 (82) 91 Room Air 12/23/19 14:39 97.9 Lab Results Laboratory Tests Test 12/23/19 15:15 White Blood Count 6.8 x10^3/uL (4.0-11.0) Red Blood Count 5.20 x10^6/uL (3.50-5.40) Hemoglobin 14.7 g/dL (12.0-15.5) Hematocrit 45.3 % (36.0-47.0) Mean Corpuscular Volume 87 fL (79-100) Mean Corpuscular Hemoglobin 28 pg (25-35) Mean Corpuscular Hemoglobin Concent 33 g/dL (31-37) Red Cell Distribution Width 13.9 % (11.5-14.5) Platelet Count 200 x10^3/uL (140-400) Neutrophils (%) (Auto) 53 % (31-73) Lymphocytes (%) (Auto) 33 % (24-48) Monocytes (%) (Auto) 10 % (0-9) H Eosinophils (%) (Auto) 3 % (0-3) Basophils (%) (Auto) 1 % (0-3) Neutrophils # (Auto) 3.6 x10^3uL (1.8-7.7) Lymphocytes # (Auto) 2.3 x10^3/uL (1.0-4.8) Monocytes # (Auto) 0.7 x10^3/uL (0.0-1.1) Eosinophils # (Auto) 0.2 x10^3/uL (0.0-0.7) Basophils # (Auto) 0.0 x10^3/uL (0.0-0.2) Urine Collection Type Void Urine Color Yellow Urine Clarity Clear Urine pH 6.5 Urine Specific Filer 1.015 Urine Protein Neg (NEG-TRACE) Urine Glucose (UA) >=1000 mg/dL (NEG) Urine Ketones (Stick) Neg mg/dL (NEG) Urine Blood Trace (NEG) Urine Nitrite Neg (NEG) Urine Bilirubin Neg (NEG) Urine Urobilinogen Dipstick 0.2 mg/dL (0.2 mg/dL) Urine Leukocyte Esterase Neg (NEG) Urine RBC 1-2 /HPF (0-2) Urine WBC 1-4 /HPF (0-4) Urine Squamous Epithelial Cells Occ /LPF Urine Bacteria Few /HPF (0-FEW) Sodium Level 140 mmol/L (136-145) Potassium Level 3.4 mmol/L (3.5-5.1) L Chloride Level 101 mmol/L (98-107) Carbon Dioxide Level 29 mmol/L (21-32) Anion Gap 10 (6-14) Blood Urea Nitrogen 15 mg/dL (7-20) Creatinine 0.6 mg/dL (0.6-1.0) Estimated GFR (Cockcroft-Gault) 101.6 BUN/Creatinine Ratio 25 (6-20) H Glucose Level 97 mg/dL (70-99) Calcium Level 9.6 mg/dL (8.5-10.1) Total Bilirubin 0.4 mg/dL (0.2-1.0) Aspartate Amino Transferase (AST) 50 U/L (15-37) H Alanine Aminotransferase (ALT) 74 U/L (14-59) H Alkaline Phosphatase 115 U/L (46-116) Troponin I Quantitative < 0.017 ng/mL (0-0.055) Total Protein 8.4 g/dL (6.4-8.2) H Albumin 3.9 g/dL (3.4-5.0) Albumin/Globulin Ratio 0.9 (1.0-1.7) L Lipase 143 U/L (73-393) EKG EKG [] Radiology/Procedures Radiology/Procedures [] Course & Med Decision Making Course & Med Decision Making Pertinent Labs and Imaging studies reviewed. (See chart for details) [] Dragon Disclaimer Dragon Disclaimer This electronic medical record was generated, in whole or in part, using a voice recognition dictation system. Departure Departure: Impression: Primary Impression: Generalized weakness Additional Impression: Nausea Disposition: 01 HOME, SELF-CARE Condition: STABLE Referrals: GAVIN RIZZO MD (PCP) Patient Instructions: Nausea, Adult, Weakness Scripts Ondansetron (ONDANSETRON ODT) 4 Mg Tab.rapdis 1 TAB PO PRN Q6-8HRS PRN for NAUSEA, #12 TAB Prov: JESÚS HIGGINBOTHAM Jr. DO 12/23/19 Problem Qualifiers JESÚS HIGGINBOTHAM Jr. DO Dec 23, 2019 16:31
== END 2019-12-23 16:38 | disposition home or self-care (01) ==
LOC: ER 14:34
DX: R53.1 Weakness (principal); R11.2 Nausea with vomiting, unspecified; J45.909 Unspecified asthma, uncomplicated; F32.9 Major depressive disorder, single episode, unspecified; E11.9 Type 2 diabetes mellitus without complications; Z98.51 Tubal ligation status; Z96.652 Presence of left artificial knee joint
CPT/HCPCS: 36415; 80053; 81001; 83690; 84484; 85025; 93005; 96361; 96374; 99285; J2405; J7030

== ENCOUNTER 2020-02-11 22:30 | Emergency (ER) | payer MEDICARE ==
[~2020-02-11] VITALS: Ht 170.2 cm; Wt 110.0 kg
[~2020-02-11 22:30] MED LIST changes: +ONDA4TAB12 PO
--- NOTE | 2020-02-11 23:32 | RAD ---
Right foot 3 views, sacrum and coccyx 3 views. HISTORY: Fall with pain Right foot 3 views were taken of the right foot. There is not evidence of an acute fracture or osseous abnormality. Sacrum and coccyx 3 views were taken of the sacrum and coccyx. Sacrum appears intact. A sacral fracture is not identified. There is slight posterior tubing of the coccyx on the lateral view although the positioning as changed little since the CT from May 2018. IMPRESSION: 1. No acute fracture noted in the right foot. 2. No fracture noted in the sacrum. 3. Slight posterior displacement of the coccyx although little change compared to previous CT. Electronically signed by: Oumar Cam MD (02/11/2020 11:29 PM) [id number]
--- NOTE | 2020-02-11 23:43 | PHYS DOC ---
Past History Past Medical History: COPD, Depression, Diabetes, GERD, High Cholesterol, Other Additional Past Medical Histor: rapid heart beat; narcolepsy--wears O2 at 2 lpm/nc; restless legs; periph n Past Surgical History: Knee Replacement, Tubal ligation, Other Additional Past Surgical Histo: ectopic with hemorrhage; glass from heel-lt Alcohol Use: None Drug Use: None Adult General Chief Complaint Chief Complaint: MECHANICAL FALL HPI HPI 59-year-old female presents after mechanical fall at home. She was stepping over a total some scars which she caught her right foot and fell to the ground. She had flexed her toes and the top of her foot is hurting and is slightly swollen. She is concern for fracture. She is able to walk. Patient also fell flat on her buttocks. She has central buttocks pain over the sacrum. She just wants to make sure she has no serious injuries. She denies any other injuries or complaints. Review of Systems Review of Systems Constitutional: Denies fever or chills [] Eyes: Denies change in visual acuity, redness, or eye pain [] HENT: Denies nasal congestion or sore throat [] Respiratory: Denies cough or shortness of breath [] Cardiovascular: No additional information not addressed in HPI [] GI: Denies abdominal pain, nausea, vomiting, bloody stools or diarrhea [] : Denies dysuria or hematuria [] Musculoskeletal: Sacrum pain, right foot pain[] Integument: Denies rash or skin lesions [] Neurologic: Denies headache, focal weakness or sensory changes [] Endocrine: Denies polyuria or polydipsia [] All other systems were reviewed and found to be within normal limits, except as documented in this note. Allergies Allergies Allergies Coded Allergies Type Severity Reaction Last Updated Verified No Known Drug Allergies 02/11/20 No Physical Exam Physical Exam Constitutional: Well developed, well nourished, no acute distress, non-toxic appearance. [] HENT: Normocephalic, atraumatic, bilateral external ears normal, oropharynx moist, no oral exudates, nose normal. [] Eyes: PERRLA, EOMI, conjunctiva normal, no discharge. [] Neck: Normal range of motion, no tenderness, supple, no stridor. [] Cardiovascular:Heart rate regular rhythm, no murmur [] Lungs & Thorax: Bilateral breath sounds clear to auscultation [] Abdomen: Bowel sounds normal, soft, no tenderness, no masses, no pulsatile masses. [] Skin: Warm, dry, no erythema, no rash. [] Back: Mild tenderness over the sacrum[] Extremities: Mild tenderness over the top of the right foot, mild swelling, no ecchymosis or obvious deformity.[] Neurologic: Alert and oriented X 3, normal motor function, normal sensory function, no focal deficits noted. [] Psychologic: Affect normal, judgement normal, mood normal. [] Current Patient Data Vital Signs Vital Signs Date Time Temp Pulse Resp B/P (MAP) Pulse Ox O2 Delivery O2 Flow Rate FiO2 02/11/20 22:40 98.1 96 20 119/73 (88) 92 Room Air EKG EKG [] Radiology/Procedures Radiology/Procedures [] Impressions: Right foot 3 views, sacrum and coccyx 3 views. HISTORY: Fall with pain Right foot 3 views were taken of the right foot. There is not evidence of an acute fracture or osseous abnormality. Sacrum and coccyx 3 views were taken of the sacrum and coccyx. Sacrum appears intact. A sacral fracture is not identified. There is slight posterior tubing of the coccyx on the lateral view although the positioning as changed little since the CT from May 2018. IMPRESSION: 1. No acute fracture noted in the right foot. 2. No fracture noted in the sacrum. 3. Slight posterior displacement of the coccyx although little change compared to previous CT. Electronically signed by: Adam De La Garza MD (02/11/2020 11:29 PM) [id number] DICTATED AND SIGNED BY: ADAM DE LA GARZA MD DATE: 02/11/20 2329 CC: GEORGIANA JONES DO; GAVIN RIZZO MD ~ Course & Med Decision Making Course & Med Decision Making Pertinent Labs and Imaging studies reviewed. (See chart for details) The patient's x-rays are negative for fracture. Patient is has subsided some. She is reassured by her results. She is stable for discharge at this time. She will take [id number] pain medications at home. [] Dragon Disclaimer Dragon Disclaimer This electronic medical record was generated, in whole or in part, using a voice recognition dictation system. Departure Departure: Impression: Primary Impression: Accident due to mechanical fall without injury Disposition: 01 HOME, SELF-CARE Condition: STABLE Referrals: GAVIN RIZZO MD (PCP) Patient Instructions: Foot Contusion, [id number] Problem Qualifiers Primary Impression: Accident due to mechanical fall without injury Encounter type: initial encounter Qualified Codes: W19.XXXA - Unspecified fall, initial encounter GEORGIANA JONES DO Feb 11, 2020 23:43
[2020-02-12] VITALS: BP 110/68
== END 2020-02-12 00:05 | disposition home or self-care (01) ==
LOC: ER 22:30
DX: M79.671 Pain in right foot (principal); M53.3 Sacrococcygeal disorders, not elsewhere classified; J44.9 Chronic obstructive pulmonary disease, unspecified; E11.9 Type 2 diabetes mellitus without complications; K21.9 Gastro-esophageal reflux disease without esophagitis; E78.00 Pure hypercholesterolemia, unspecified; W18.39XA Other fall on same level, initial encounter; Y93.89 Activity, other specified; Y92.098 Other place in other non-institutional residence as the place of occurrence of the external cause; Y99.8 Other external cause status
CPT/HCPCS: 72220; 73630; 99284

== ENCOUNTER 2021-02-17 13:21 | Emergency (ER) | payer MEDICARE ==
[~2021-02-17] VITALS: Ht 170.2 cm; Wt 103.1 kg
[2021-02-17 13:21] VITALS: BP 143/75
[~2021-02-17 13:21] MED LIST changes: -ASPI-612 PO; +ASPI-889 PO; +MULT-445 PO; -MULT1TAB52 PO
--- NOTE | 2021-02-17 13:49 | PHYS DOC ---
Past History Past Medical History: COPD, Depression, Diabetes, GERD, High Cholesterol, Other Additional Past Medical Histor: rapid heart beat; narcolepsy--wears O2 at 2 lpm/nc; restless legs; periph n Past Surgical History: Knee Replacement, Tubal ligation, Other Additional Past Surgical Histo: ectopic with hemorrhage; glass from heel-lt Alcohol Use: None Drug Use: None Adult General Chief Complaint Chief Complaint: MECHANICAL FALL HPI HPI Patient is a 60-year-old female presenting for headache. Patient reports suffering a fall at workplace 48 hours ago. She was walking in the kitchen holding a tray of chicken, reports tripping over her own feet and fell on her left side, she remained holding tray of chicken but hit her left temporal region of the head on open oven door. No loss of consciousness, no blood thinner use, no motor or sensory function deficits or other neurologic deficits reported. Patient discussed case today, specifically ongoing headache with PCP who is concerned given patient's age and mechanism of injury recommended she come seek care at our ER for evaluation. Review of Systems Review of Systems Fourteen body systems of review of systems have been reviewed. See HPI for pertinent positives and negative responses, other yo all other systems are negative, non-pertinent or non-contributory Allergies Allergies Allergies Coded Allergies Type Severity Reaction Last Updated Verified No Known Drug Allergies 02/11/20 No Physical Exam Physical Exam Constitutional: Well developed, well nourished, no acute distress, non-toxic appearance. HENT: Normocephalic, atraumatic, bilateral external ears normal, oropharynx moist, no oral exudates, nose normal. Eyes: PERRLA, EOMI, conjunctiva normal, no discharge. Neck: Normal range of motion, no tenderness, supple, no stridor. Cardiovascular: Heart rate regular, sinus rhythm, no murmurs rubs or gallops Lungs & Thorax: Bilateral breath sounds clear to auscultation Abdomen: Bowel sounds normal, soft, no tenderness, no masses, no pulsatile masses. Nonsurgical abdomen, no peritoneal signs Skin: Warm, dry, no erythema, no rash. Back: No tenderness, no CVA tenderness. Extremities: No tenderness, no cyanosis, no clubbing, ROM intact, no edema. Neurologic: Alert and oriented X 3, cranial nerves II through XII intact, normal motor & sensory function, no focal deficits noted. Psychologic: Affect normal, judgement normal, mood normal. EKG EKG [] Radiology/Procedures Radiology/Procedures PROCEDURE: CT HEAD WO CONTRAST CT HEAD/BRAIN WO Date: 02/17/2021 1:53 PM Clinical Indication: Reason: fall, hit left temporal area, no deficits / Spl. Instructions: / History: Comparison: 12/30/2018. Technique: 5 mm axial tomographic images were obtained of the head without contrast. These were viewed on brain and bone windows. One or more of the following dose reduction techniques were utilized: Automated exposure control (AEC), Adjustment of mA and/or kV according to patient size, Use of iterative reconstruction technique such as ASiR, CT scan done according to ALARA and image gently/image wisely Findings: The brain parenchyma is normal in attenuation. No intra- or extra-axial mass or fluid collection. No acute hemorrhage. The ventricles are normal in size, shape, and morphology. The conn-white matter junction is normal. The subarachnoid cisterns are patent. The visualized paranasal sinuses are normal. The visualized portions of the orbits and globes are normal. The mastoid air cells are clear. The postdoctoral scientist topogram shows no lytic lesion or fracture. Impression: No acute intracranial process. Electronically signed by: Curt Cruz MD (02/17/2021 2:07 PM) [facility] Heart Score C/O Chest Pain: No Risk Factors: Risk Factors: DM, Current or recent (<one month) smoker, HTN, HLP, family history of CAD, obesity. Risk Scores: Risk Factors: DM, Current or recent (<one month) smoker, HTN, HLP, family history of CAD, obesity. Course & Med Decision Making Course & Med Decision Making Hemodynamically stable patient with grossly nonconcerning history concerning for closed head injury in elderly patient, physical exam unremarkable. CT imaging of head performed and grossly unremarkable Discussed most likely diagnosis of sequelae of closed head injury such as contusion. Discussed role of continued supportive care such as NSAID and/or Tylenol use for pain and ice. Patient has good access to PCP, states she can be seen in upcoming 72 hours for repeat evaluation I did disclose this might be an acute presentation of more concerning pathology and so, I stressed importance of following up early this upcoming week Strict return precautions were discussed with good understanding by patient, all questions and concerns addressed prior to ER departure in stable condition Brenden Disclaimer Brenden Disclaimer This electronic medical record was generated, in whole or in part, using a voice recognition dictation system. Departure Departure: Impression: Primary Impression: History of recent fall Additional Impression: Headache Disposition: 01 DC HOME SELF CARE/HOMELESS Condition: STABLE Referrals: GAVIN RIZZO MD (PCP) Additional Instructions: You were seen for a headache. Please continue supportive care practices at home such as NSAIDs and/or Tylenol use for pain as needed. You should return to the ED if you develop worsening pain, vision change, numbness, tingling, weakness, vomiting, fever, neck pain, or any other new or concerning symptoms. You need to follow up with your primary care physician for further evaluation and treatment. Problem Qualifiers YONIS MARTIN DO Feb 17, 2021 13:49
[2021-02-17] MEDS: ACETAMINOPHEN 325 MG TABLET PO ONE (14:00)
--- NOTE | 2021-02-17 14:09 | RAD ---
CT HEAD/BRAIN WO Date: 02/17/2021 1:53 PM Clinical Indication: Reason: fall, hit left temporal area, no deficits / Spl. Instructions: / Histor y: Comparison: 12/30/2018. Technique: 5 mm axial tomographic images were obtained of the head without contrast. These were view ed on brain and bone windows. One or more of the following dose reduction techniques were utilized: A utomated exposure control (AEC), Adjustment of mA and/or kV according to patient size, Use of iterati ve reconstruction technique such as ASiR, CT scan done according to ALARA and image gently/image yo ly Findings: The brain parenchyma is normal in attenuation. No intra- or extra-axial mass or fluid collection. No acute hemorrhage. The ventricles are normal in size, shape, and morphology. The conn-white matter javier ction is normal. The subarachnoid cisterns are patent. The visualized paranasal sinuses are normal. The visualized portions of the orbits and globes are no rmal. The mastoid air cells are clear. The planning and analysis manager topogram shows no lytic lesion or fracture. Impression: No acute intracranial process. Electronically signed by: Curt Cruz MD (02/17/2021 2:07 PM) [facility]
== END 2021-02-17 14:30 | disposition home or self-care (01) ==
LOC: ER 13:21
DX: G89.11 Acute pain due to trauma (principal); R51.9 Headache, unspecified; J44.9 Chronic obstructive pulmonary disease, unspecified; F32.9 Major depressive disorder, single episode, unspecified; K21.9 Gastro-esophageal reflux disease without esophagitis; E78.00 Pure hypercholesterolemia, unspecified; E11.9 Type 2 diabetes mellitus without complications; Z98.890 Other specified postprocedural states; Z98.51 Tubal ligation status; W01.0XXA Fall on same level from slipping, tripping and stumbling without subsequent striking against object, initial encounter; Y93.89 Activity, other specified; Y92.89 Other specified places as the place of occurrence of the external cause; Y99.8 Other external cause status
CPT/HCPCS: 70450; 99284

== ENCOUNTER 2021-05-02 19:06 | Emergency (ER) | payer MEDICARE ==
[~2021-05-02] VITALS: Ht 172.7 cm; Wt 103.5 kg
--- NOTE | 2021-05-02 19:29 | PHYS DOC ---
Past History Past Medical History: COPD, Depression, Diabetes, GERD, High Cholesterol, Hypertension, UTI, Other Additional Past Medical Histor: rapid heart beat; narcolepsy--wears O2 at 2 lpm/nc; restless legs; periph n Past Surgical History: Knee Replacement, Tubal ligation, Other Additional Past Surgical Histo: ectopic with hemorrhage; glass from heel-lt Alcohol Use: None Drug Use: None General Adult EDM: Chief Complaint: HEADACHE HPI: HPI: 60-year-old female presents with head injury. The patient was walking in a pain attention and walked into a branch of a tree. She sustained a small abrasion to her head that was bleeding. The patient takes 81 mg aspirin daily. She denies loss of consciousness. She has had no dizziness, nausea, vomiting, or altered sensation. She really has no other complaints. She came in because her children are concerned. Review of Systems: Review of Systems: Constitutional: Denies fever or chills Eyes: Denies change in visual acuity HENT: Denies nasal congestion or sore throat Respiratory: Denies cough or shortness of breath Cardiovascular: Denies chest pain or edema GI: Denies abdominal pain, nausea, vomiting, bloody stools or diarrhea : Denies dysuria Musculoskeletal: Denies back pain or joint pain Integument: Abrasion on right superior scalp Neurologic: Denies headache, focal weakness or sensory changes Endocrine: Denies polyuria or polydipsia Lymphatic: Denies swollen glands Psychiatric: Denies depression or anxiety Allergies: Allergies: Allergies Coded Allergies Type Severity Reaction Last Updated Verified No Known Drug Allergies 02/11/20 No Physical Exam: PE: Constitutional: Well developed, well nourished, no acute distress, non-toxic appearance. [] HENT: Normocephalic, atraumatic, bilateral external ears normal, oropharynx moist, no oral exudates, nose normal. [] Eyes: PERRLA, EOMI, conjunctiva normal, no discharge. [] Neck: Normal range of motion, no tenderness, supple, no stridor. [] Cardiovascular:Heart rate regular rhythm, no murmur [] Lungs & Thorax: Bilateral breath sounds clear to auscultation [] Abdomen: Bowel sounds normal, soft, no tenderness, no masses, no pulsatile masses. [] Skin: Small abrasion of the right superior scalp with 2 cm surrounding hematoma, bleeding controlled [] Back: No tenderness, no CVA tenderness. [] Extremities: No tenderness, no cyanosis, no clubbing, ROM intact, no edema. [] Neurologic: Alert and oriented X 3, normal motor function, normal sensory function, no focal deficits noted. [] Psychologic: Affect normal, judgement normal, mood normal. [] EKG: EKG: [] Radiology/Procedures: Radiology/Procedures: [] Heart Score: C/O Chest Pain: N/A Risk Factors: Risk Factors: DM, Current or recent (<one month) smoker, HTN, HLP, family history of CAD, obesity. Risk Scores: Score 0 - 3: 2.5% MACE over next 6 weeks - Discharge Home Score 4 - 6: 20.3% MACE over next 6 weeks - Admit for Clinical Observation Score 7 - 10: 72.7% MACE over next 6 weeks - Early Invasive Strategies Course & Med Decision Making: Course & Med Decision Making Pertinent Labs and Imaging studies reviewed. (See chart for details) The patient's exam is unremarkable. She has a small abrasion on her scalp that has stopped bleeding. I do believe any imaging is warranted at this time. I have given her warning signs to look for. If any of these develop she will return to the emergency room. She is stable for discharge at this time. [] Brenden Disclaimer: Brenden Disclaimer: This electronic medical record was generated, in whole or in part, using a voice recognition dictation system. Departure Departure: Impression: Primary Impression: Abrasion, scalp w/o infection Disposition: HOME / SELF CARE / HOMELESS Condition: STABLE Referrals: GAVIN RIZZO MD (PCP) Patient Instructions: Kalyan Veja-tf-Lyuw GEORGIANA JONES DO May 02, 2021 19:29
[2021-05-02 19:35] VITALS: BP 134/61
== END 2021-05-02 19:34 | disposition home or self-care (01) ==
LOC: ER 19:06
DX: S00.03XA Contusion of scalp, initial encounter (principal); J44.9 Chronic obstructive pulmonary disease, unspecified; F32.9 Major depressive disorder, single episode, unspecified; E11.9 Type 2 diabetes mellitus without complications; K21.9 Gastro-esophageal reflux disease without esophagitis; E78.00 Pure hypercholesterolemia, unspecified; I10 Essential (primary) hypertension; Z87.440 Personal history of urinary (tract) infections; X58.XXXA Exposure to other specified factors, initial encounter; Y93.01 Activity, walking, marching and hiking; Y92.89 Other specified places as the place of occurrence of the external cause; Y99.8 Other external cause status
CPT/HCPCS: 99281